=== PATIENT | male | born 1985 | race Caucasian/White ===

== ENCOUNTER 2025-01-25 22:23 | Emergency (ER) | payer MEDICAID, OTHER ==
[~2025-01-25] VITALS: Ht 188 cm; Wt 136.1 kg
[2025-01-25 22:34] VITALS: BP 146/88; PULSE 120; RESP 22; TEMP 98.3; O2SAT 96
[2025-01-25] MEDS ORDERED: SODIUM CHLORIDE 0.9% 2,000 ML IV ONE (22:45)
[2025-01-25 23:02] LABS: Basophils # (auto) 0 10 ^3/uL (0-0.2); Basophils % (auto) 0.7 % (0.0-2.0); Eosinophils # (auto) 0.1 10 ^3/uL (0-0.8); Hematocrit 43.6 % (41.0-53.0); Hemoglobin 14.9 g/dL (13.5-17.5); Lymphocytes # (auto) 2.3 10 ^3/uL (0.4-5.4); Lymphocytes % (auto) 39.4 % (10.0-50.0); Mean Corpuscular Hemoglobin 30.9 pg (28.0-32.0); Mean Corpuscular Hgb Conc. 34.2 g/dL (32.0-36.0); Mean Corpuscular Volume 90.3 fL (80.0-100.0); Monocytes # (auto) 0.5 10 ^3/uL (0-1.3); Monocytes % (auto) 8.8 % (0.0-12.0); Neutrophils # (auto) 2.9 10 ^3/uL (1.6-8.6); Neutrophils % (auto) 50.1 % (37.0-80.0); Nucleated Red Blood Cells % 0.2 %; Platelet Count (auto) 301 10^3/uL (140-450); Red Blood Cells 4.83 10^6/uL (4.5-5.90); Red Cell Distribution Width 14.1 % (11.8-14.3); White Blood Cell 5.9 10^3/uL (4.4-10.8)
[2025-01-25 23:45] LABS: Albumin 4.6 g/dL (3.2-4.8); Alkaline Phosphatase 85 U/L (46-116); Anion Gap 15 (5-15); BUN/Creatinine Ratio 10.7 (10.0-20.0); Carbon Dioxide 25 mmol/L (20-31); Chloride 104 mmol/L (98-107); Sodium 144 mmol/L (136-145); Total Protein 7.3 g/dL (5.7-8.2)
[2025-01-25 23:46] LABS: Alanine Aminotransferase 118 U/L (7-40); Aspartate Aminotransferase 69 U/L (13-40); Bilirubin, Total 0.3 mg/dL (0.2-1.0); Blood Urea Nitrogen 9 mg/dL (9-23); Calcium 8.3 mg/dL (8.7-10.4); Glucose 113 mg/dL (74-106); Potassium 3.2 mmol/L (3.5-5.1)
--- NOTE | 2025-01-26 00:38 | ED.PDOC ---
History of Present Illness HPI Comments 39-year-old male with self-reported history of liver cirrhosis brought in by EMS from home with alcohol intoxication. Patient stated to EMS that he drank a handle of vodka prior to calling 911. Patient states he called 911 because he is concerned that he is going to of liver failure. He states he typically drinks a handle or more of vodka daily. He denies any pain, nausea, vomiting, worsening abdominal distention or other symptoms. Chief Complaint: ETOH Time Seen by MD: 22:36 Primary Care Provider: ENRIQUETA Allergies: Uncoded Allergies: PENICILLIN (Allergy, Unknown, 02/16/14) Information Source: Patient, Emergency Med Personnel Mode of Arrival: EMS Past Medical History Past Medical History (Other): Self-reported liver cirrhosis Surgical History: Denies all surgeries Family History Family History: Unknown Social History Smoker: Non-Smoker Alcohol: Heavy Drugs: Other (States he uses multiple drugs but can not pronounced the names) Lives In: Home Unable to Obtain due to: Altered Mental Status (Comprehensive systems review unobtainable due to alcohol intoxication) Physical Exam General Appearance: No Apparent Distress, Obese HEENT: Other (Pupils and face symmetric. Moist mucous membranes.) Neck: Full Range of Motion, Normal Inspection Respiratory: Lungs Clear, No Accessory Muscle Use, No Respiratory Distress, Normal Breath Sounds Cardiovascular: No Edema, No JVD, Tachycardia Breast Exam: Deferred Gastrointestinal: Non Tender, Soft Genitalia: Deferred Pelvic: Deferred Rectal: Deferred Extremities: Normal inspection, Normal range of motion, Non-tender, No pedal edema Neurologic: Alert (Oriented x4), Normal Affect, Other (Anxious. Appears intoxicated. Moves all extremities.) Cerebellar Function: NOT DONE Reflexes: NOT DONE Skin: Dry, Normal Color, Warm Lymphatic: NOT DONE Was a procedure done? Was a procedure done?: No Differential Dx Considerations may include: Alcohol intoxication, drug intoxication, liver disease/failure, hepatic encephalopathy, among others X-Ray, Labs, Meds, VS Vital Signs Date Time Temp Pulse Resp B/P (MAP) Pulse Ox O2 Delivery O2 Flow Rate FiO2 01/25/25 22:34 98.3 120 22 146/88 (107) 96 98.3 Lab Test 01/25/25 23:43 01/25/25 22:52 Range/Units Ammonia 19 11-32 umol/L White Blood Count 5.9 4.4-10.8 10^3/uL Red Blood Count 4.83 4.5-5.90 10^6/uL Hemoglobin 14.9 13.5-17.5 g/dL Hematocrit 43.6 41.0-53.0 % Mean Corpuscular Volume 90.3 80.0-100.0 fL Mean Corpuscular Hemoglobin 30.9 28.0-32.0 pg Mean Corpuscular Hemoglobin Concent 34.2 32.0-36.0 g/dL Red Cell Distribution Width 14.1 11.8-14.3 % Platelet Count 301 140-450 10^3/uL Mean Platelet Volume 6.7 L 6.9-10.8 fL Neutrophils (%) (Auto) 50.1 37.0-80.0 % Lymphocytes (%) (Auto) 39.4 10.0-50.0 % Monocytes (%) (Auto) 8.8 0.0-12.0 % Eosinophils (%) (Auto) 1.0 0.0-7.0 % Basophils (%) (Auto) 0.7 0.0-2.0 % Neutrophils # (Auto) 2.9 1.6-8.6 10 ^3/uL Lymphocytes # (Auto) 2.3 0.4-5.4 10 ^3/uL Monocytes # (Auto) 0.5 0-1.3 10 ^3/uL Eosinophils # (Auto) 0.1 0-0.8 10 ^3/uL Basophils # (Auto) 0 0-0.2 10 ^3/uL Nucleated Red Blood Cells 0.2 % Sodium Level 144 136-145 mmol/L Potassium Level 3.2 L 3.5-5.1 mmol/L Chloride Level 104 98-107 mmol/L Carbon Dioxide Level 25 20-31 mmol/L Anion Gap 15 5-15 Blood Urea Nitrogen 9 9-23 mg/dL Creatinine 0.84 0.700-1.30 mg/dL Glomerular Filtration Rate Calc 115 >90 mL/min BUN/Creatinine Ratio 10.7 10.0-20.0 Serum Glucose 113 H 74-106 mg/dL Calcium Level 8.3 L 8.7-10.4 mg/dL Total Bilirubin 0.3 0.2-1.0 mg/dL Aspartate Amino Transferase (AST) 69 H 13-40 U/L Alanine Aminotransferase (ALT) 118 H 7-40 U/L Alkaline Phosphatase 85 46-116 U/L Total Protein 7.3 5.7-8.2 g/dL Albumin 4.6 3.2-4.8 g/dL Plasma/Serum Blood Alcohol 426.1 *H <10 mg/dL X-Ray, Labs, Meds, VS Comment 39-year-old male with a history of self-reported liver disease presenting with alcohol intoxication and concern for liver failure Vitals remarkable for heart rate 120, respiratory rate 22, BP 146/88 Exam remarkable for intoxication and tachycardia Rhythm strip independently interpreted by me: Sinus tach, rate 120, no ectopy. CBC unremarkable, comprehensive metabolic panel remarkable for potassium 3.2, AST 69, ALT 118, ammonia level normal, serum alcohol 426. Urine drug screen pending Patient treated with the following in the ED: 2 L 0.9 normal saline IV bolus, effervescent potassium 50 mEq p.o. On re-evaluation, patient still appears intoxicated but vitals are stable. He is in no distress. Patient does not appear septic at this time. Tachycardia and increased respiratory rate are likely due to intoxication. Liver function tests are slightly abnormal, however not concerning at this time. Patient will be stable for discharge pending sobriety with close outpatient follow-up with his primary physician. Patient will be endorsed to the overnight ED physician pending sobriety. [id number] patient was noted to have eloped from the lobby. 0213 patient was noted to have returned to the lobby. Time of 1ST Reevaluation: 00:30 Reevaluation 1ST: Improved Patient Education/Counseling: Diagnosis, Treatment, Need For Follow Up Family Education/Counseling: No Family Present Sepsis Recent Procedure: No On Antibiotic Therapy: No Respiratory Rate >20: Yes Heart Rate >90: Yes Temp<36 C (96.8 F) or >38.3 C: No SBP <90 or MAP <65 mmHG: No New Acute Mental Status Change: No Is the patient on CPAP, BIPAP,: No IV fluid given: Yes Departure 1 Departure Time of Disposition: 00:30 Impression: Primary Impression: Alcohol intoxication Qualified Codes: F10.929 - Alcohol use, unspecified with intoxication, unspecified Disposition: 30 STILL A PATIENT Condition: Fair Additional Instructions: Your blood tests were remarkable for mildly abnormal liver function tests. These do not indicate liver failure. Follow-up with your primary doctor in 1-2 days. Return to ER for persistent or worsening symptoms. Critical Care Note Critical Care Time?: No Stability Stability form required: No Heart Score Heart Score: Heart Score Response (Comments) Value History N/A 0 EKG N/A 0 Age N/A 0 Risk Factors N/A 0 Troponin N/A 0 Total 0 YANA WARD MD Jan 26, 2025 00:38
[2025-01-26 02:58] LABS: Blood Alcohol 426.1 mg/dL (<10)
== END 2025-01-26 04:45 | disposition left against medical advice (07) ==
LOC: ER 22:23 → EDBD 22:23 → EDSEX 22:23 → ER 01-26 04:45
DX: F10.129 Alcohol abuse with intoxication, unspecified (principal); K74.60 Unspecified cirrhosis of liver; Z88.0 Allergy status to penicillin; Y90.9 Presence of alcohol in blood, level not specified
CPT/HCPCS: 36415; 80053; 80320; 82140; 85025